=== PATIENT | male | born 1955 | race Caucasian/White ===

== ENCOUNTER 2023-05-15 11:30 | Observation (INO) | payer OTHER, SELFPAY ==
[2023-05-15] VITALS (8 sets, daily range): BP systolic 113–198; BP diastolic 62–88; PULSE 49–61; RESP 12–20; TEMP 36.4–37; O2SAT 97–100; BMI 24.1
--- NOTE | 2023-05-15 11:36 | DI.CT.S_ITS ---
PROCEDURE: CT STROKE INDICATIONS: code stroke TECHNIQUE: Noncontrast 4.5 mm thick angled axial sections acquired from the foramen magnum to the vertex, with coronal reformats. For radiation dose reduction, the following was used: automated exposure control, adjustment of mA and/or kV according to patient size. COMPARISON: None. FINDINGS: Image quality: Excellent. CSF spaces: Basal cisterns are patent. No extra-axial fluid collections. The ventricles are symmetric in size and shape. Brain: No intracranial bleeds or masses. There is cerebral volume loss for age, with resultant ventricular and sulcal prominence. There are periventricular and deep white matter chronic small vessel ischemic changes. There is intracranial internal carotid artery atherosclerosis. Skull and face: Calvarium and visualized facial bones appear intact, without suspicious lesions. Sinuses: Visualized sinuses and mastoids are clear. IMPRESSION: No acute intracranial hemorrhage is seen. No acute intracranial process is seen. If there is strong clinical suspicion for an acute stroke, please consider a brain MRI for further evaluation, as it is more sensitive (assuming that there is no contraindication to MRI). Note: Case discussed by telephone with Dr. Laurent at 10:58 a.m. [place] time on May 15, 2023. This study fulfills neurological imaging criteria for inclusion or exclusion of acute stroke therapies based on available published neurological guidelines. Dictated by: Adan Ochoa M.D. on 05/15/2023 at 10:57 Approved by: Adan Ochoa M.D. on 05/15/2023 at 10:59
--- NOTE | 2023-05-15 11:37 | DI.CT.S_ITS ---
PROCEDURE: CT ANGIO HEAD AND NECK INDICATIONS: code stroke TECHNIQUE: After the administration of intravenous contrast, 1 mm thick sections acquired from the aortic arch through the [place] of [place]. 3-dimensional ijfhvyp-xptcowaqe-rrswdcsjgc (MIP) and/or volume rendering reformats were acquired of the central intracranial vasculature and neck separately. For radiation dose reduction, the following was used: automated exposure control, adjustment of mA and/or kV according to patient size. COMPARISON: [facility], CT, CT STROKE, 05/15/2023, 11:38. FINDINGS: Image quality: There is streak artifact seen through the level of the shoulders. Limited by bolus timing, with venous contamination. BRAIN: CSF spaces: Ventricles are normal in size and shape. Basal cisterns are patent. No extra-axial fluid collections. Brain: No significant abnormality of the brain can be seen. Skull and face: Calvarium and facial bones appear intact, without suspicious lesions. Orbits appear normal. Sinuses: Sinuses and mastoids are clear. HEAD CT ANGIOGRAPHY: Anterior circulation: Intracranial internal carotid arteries are normal in size and flow. There is a diminutive right A1 segment, with a corresponding robust left A1 segment. This is considered to be a normal developmental variant of the [place] of [place], of typically no clinical consequence. The flow within the paired anterior cerebral arteries is asymmetric, more robust on the left. This is believed to be a congenital variant. The flow within the middle cerebral arteries is normal and symmetric. The anterior communicating artery is seen. No aneurysms are seen. Posterior circulation: Visualized portions of the vertebral arteries demonstrate normal caliber, and join to form a normal appearing basilar artery. Flow within the posterior cerebral arteries is normal and symmetric. No aneurysms are seen. NECK CT ANGIOGRAPHY: Carotid system: The great vessels demonstrate a conventional anatomy as they arise from the aortic arch. Atherosclerotic calcification is noted. The origins of the common carotid arteries appear patent. The common carotid arteries demonstrate normal caliber and courses. The bifurcation regions are both widely patent. The internal carotid arteries demonstrate normal calibers and courses. Posterior circulation: The origins of the vertebral arteries both appear widely patent. The more superior extracranial portions of both vertebral arteries also demonstrate normal courses and calibers. They join to form a normal appearing basilar artery. Soft tissues: Visualized neck soft tissues demonstrate no suspicious abnormalities. Bones: No suspicious bony lesions. Visualized cervical spine appears normally aligned. Moderate cervical spine degenerative change can be seen, which is worst inferiorly. IMPRESSION: Within the arteries of the neck, no hemodynamically significant stenosis can be seen. No significant intracranial arterial abnormality is seen. Additional findings: Uudzpo-ji-Iyqcsy developmental anomalies Moderate lower cervical spine degenerative change Any quantitative measurements of stenosis were performed using NASCET criteria. Dictated by: Adan Ochoa M.D. on 05/15/2023 at 11:08 Approved by: Adan Ochoa M.D. on 05/15/2023 at 11:13
[2023-05-15 11:49] LABS: Add Manual Diff / Slide Review NO; Basophils Absolute Auto 0 /uL (0-100); Basophils Percent Auto 0.3 % (0-2); Eosinophils Absolute Auto 200 /uL (0-450); Eosinophils Percent Auto 3.3 % (2-4); Hematocrit 37.9 % (41-53); Hemoglobin 13.2 g/dL (13.5-17.5); Lymphocytes Absolute Auto 1900 /uL (1100-4500); Lymphocytes Percent Auto 31.8 % (25-40); Mean Corpuscular HGB Conc 34.7 % (30-36); Mean Corpuscular Hemoglobin 29.5 PG (26-34); Monocytes Absolute Auto 500 /uL (0-900); Monocytes Percent Auto 8.7 % (3-14); Neutrophils Absolute Auto 3400 /uL (1500-7000); Neutrophils Percent Auto 55.9 % (50-75); Platelet Count 215 X10^3/uL (150-400); Red Blood Cell Count 4.46 X10^6/uL (4.5-5.9); Red Cell Distribution Width 16.5 % (11.6-14.8); White Blood Cell Count 6.1 X10^3/uL (4.5-11.0)
[2023-05-15 11:58] LABS: INR 1.2 (0.9-1.3); Prothrombin Time 13.3 SECONDS (10.1-12.7)
--- NOTE | 2023-05-15 11:59 | ED.NEUROSD ---
HPI - Neuro Symptoms/Deficit General Chief Complaint: Neuro Symptoms/Deficit Stated Complaint: possibly having a stroke Time Seen by Provider: 05/15/23 11:36 Source: patient and family Mode of arrival: Ambulatory Limitations: no limitations History of Present Illness HPI Narrative: Patient is a 68-year-old male. Arrived in the emergency department approximately 1 hour after the onset of symptoms. He was with his . He was at his normal state of health. They were driving. He stated that he had a fairly sudden onset of difficulty seeing. He describes it as feeling like that there was son in his eyes. About that time the patient's also states that he seemed to be somewhat confused. Was slurring his words. Had a difficult time explaining what was going on. They pulled over. She had to drive because of the way he was feeling. Patient states that at the time he was not having chest pain or shortness of breath or headache or abdominal pain or nausea or vomiting. They arrived here to the emergency department for evaluation of above symptoms. At the time of my evaluation he states that he has now started to develop a frontal headache. His vision changes that he had earlier have resolved. His thinks that he is still having some issues with speaking although she admits and he also admits that his speaking has greatly improved as well. He never had any tingling in his upper or lower extremities. He is not on blood thinners. On Anticoagulants: No Review of Systems Review of Systems ROS Unobtainable: All systems reviewed & are unremarkable except as noted in HPI and below Hematologic/Lymphatic On Anticoagulants: No Exam Initial Vital Signs Initial Vital Signs: Vital Signs Pulse Rate 54 L 05/15/23 11:35 Respiratory Rate 19 05/15/23 11:35 Blood Pressure 176/81 H 05/15/23 11:35 Pulse Oximetry 100 05/15/23 11:35 Const General: cooperative, comfortable and No ill appearing HENWV Head: normal to inspection and normocephalic Resp Effort & Inspection: normal respiratory effort Auscultation: clear to auscultation bilaterally Cardio Rate: regular rate Rhythm: regular rhythm GI Inspection: normal to inspection and non-distended Skin General: no rashes or lesions noted Neuro General: patient alert, patient awake, patient oriented x3 and moves all extremities Cranial Nerves: CN's II-XI intact bilaterally Cognition: normal cognition Speech: speech normal Sensory Exam: no sensory deficits noted Extrem General: normal to inspection, capillary refill normal and No edema Scores GCS Rivera coma scale eye opening: Spontaneous Rivera coma scale verbal response: Orientated Rivera coma scale motor response: Obey commands [place] coma scale total score: 15 NIH Stroke Scale Level of Conciousness: Alert, keenly responsive Ask month/age: Answers both questions correctly. Open/close eyes, close hand: Performs both tasks correctly Best gaze horizontal: Normal Visual willett: No visual loss Facial palsy: Normal symetrical movement Left arm drift: No drift for full 10 sec Right arm drift: No drift for full 10 sec Left leg drift: No drift for full 5 sec Right leg drift: No drift for full 5 sec Limb ataxia: Absent Sensory on face/arms/legs: Normal, no sensory loss Best language: No aphasia, normal Dysarthria: Normal Extinction or inattention: No abnormality Total NIH Stroke scale score: 0 Course Orders Ordered: ED Orders 05/15/23 11:36 CT Stroke Stat 05/15/23 11:37 CT angio head and neck Stat 05/15/23 11:38 EKG-12 Lead Stat 05/15/23 11:40 Complete Blood Count AUTO DIFF Stat Comprehensive Metabolic Panel Stat Ethanol (ETOH) Stat Lipase Stat Magnesium Stat PTT Partial Thromboplastin Jamin Stat Prothrombin Time INR Stat Troponin & CK Cardiac Panel Stat Aspirin (Aspirin Ec 81 Mg Tablet) 81 mg PO DAILY YASMIN Clopidogrel Bisulfate (Clopidogrel 75 Mg Tablet) 75 mg PO DAILY YASMIN Vital Signs Vital signs: Vital Signs - 8 hr 05/15/23 11:40 05/15/23 11:35 05/15/23 11:35 Temperature 98.6 F Pulse Rate 53 L 54 L Respiratory Rate 16 19 Blood Pressure 198/88 H 176/81 H Pulse Oximetry 99 100 Oxygen Delivery Method Room Air 05/15/23 12:00 05/15/23 12:00 05/15/23 12:30 Temperature Pulse Rate 55 L 50 L Respiratory Rate 17 12 Blood Pressure 172/71 H Pulse Oximetry 100 100 Oxygen Delivery Method 05/15/23 12:31 05/15/23 12:31 Temperature Pulse Rate 50 L Respiratory Rate 14 Blood Pressure 148/70 H Pulse Oximetry 100 Oxygen Delivery Method MDM - Neuro Symptoms/Deficit Lab Data Attestation: I reviewed the patient's lab results. 05/15/23 11:40 05/15/23 11:40 Labs: Lab Results 05/15/23 05/15/23 05/15/23 Range/Units 11:40 11:40 11:40 WBC 6.1 (4.5-11.0) X10^3/uL RBC 4.46 L (4.5-5.9) X10^6/uL Hgb 13.2 L (13.5-17.5) g/dL Hct 37.9 L (41-53) % MCV 85.0 (80-100) fL MCH 29.5 (26-34) PG MCHC 34.7 (30-36) % RDW 16.5 H (11.6-14.8) % Plt Count 215 (150-400) X10^3/uL Neut % (Auto) 55.9 (50-75) % Lymph % (Auto) 31.8 (25-40) % Simpson % (Auto) 8.7 (3-14) % Eos % (Auto) 3.3 (2-4) % Baso % (Auto) 0.3 (0-2) % Neut # (Auto) 3400 (5805-1475) /uL Lymph # (Auto) 1900 (4301-6110) /uL Simpson # (Auto) 500 (0-900) /uL Eos # (Auto) 200 (0-450) /uL Baso # (Auto) 0 (0-100) /uL PT 13.3 H (10.1-12.7) SECONDS INR 1.2 (0.9-1.3) APTT 31 (26-36) SECONDS Sodium 138 (137-145) mmol/L Potassium 4.1 (3.4-5.1) mmol/L Chloride 100 (98-107) mmol/L Carbon Dioxide 27 (22-32) mmol/L BUN 14 (9-20) mg/dL Creatinine 0.84 (0.66-1.25) mg/dL Estimated GFR > 60 (>60) mL/min BUN/Creatinine Ratio 16.7 (6-22) Glucose 95 (80-110) mg/dL Calcium 9.9 (8.4-10.2) mg/dL Magnesium 2.0 (1.6-2.3) mg/dL Total Bilirubin 0.9 (0.2-1.3) mg/dL AST 24 (17-59) IU/L ALT 22 (<50) IU/L Alkaline Phosphatase 37 L (38-126) U/L Total Creatine Kinase 85 (55-170) U/L Troponin I < 0.012 (0.01-0.034) ng/mL Total Protein 7.9 (6.3-8.2) g/dL Albumin 4.8 (3.5-5.0) g/dL Globulin 3.1 (1.7-4.1) g/dL Albumin/Globulin Ratio 1.5 (1.0-2.8) Lipase 158 (23-300) U/L Ethyl Alcohol < 10 ( - 10) mg/dL Point of Care Testing Glucose POC 92 Urine Dip Bedside Urine Glucose Negative Bedside Urine Bilirubin - Negative Bedside Urine Ketone +/- 5 Urine Specific [place] 1.000 Bedside Urine Occult Blood - Negative Bedside Urine pH 6.0 Bedside Urine Protein - Negative Bedside Urine Urobilinogen - Negative Bedside Urine Nitrite - Negative Bedside Urine Leukocytes - Negative Esterase Imaging Data CT scan - head: Radiologist's Impression: PROCEDURE:? CT STROKE ? INDICATIONS:? code stroke ? TECHNIQUE:? Noncontrast 4.5 mm thick angled axial sections acquired from the foramen magnum to the vertex, with coronal reformats.? For radiation dose reduction, the following was used:? automated exposure control, adjustment of mA and/or kV according to patient size.? ? COMPARISON:? None. ? FINDINGS:? Image quality:? Excellent.? ? CSF spaces:? Basal cisterns are patent.? No extra-axial fluid collections.? The ventricles are symmetric in size and shape.? ? Brain:? No intracranial bleeds or masses.? There is cerebral volume loss for age, with resultant ventricular and sulcal prominence.? There are periventricular and deep white matter chronic small vessel ischemic changes.? There is intracranial internal carotid artery atherosclerosis.? ? Skull and face:? Calvarium and visualized facial bones appear intact, without suspicious lesions.? ? Sinuses:? Visualized sinuses and mastoids are clear.? ? ? IMPRESSION:? No acute intracranial hemorrhage is seen. ? No acute intracranial process is seen. ? If there is strong clinical suspicion for an acute stroke, please consider a brain MRI for further evaluation, as it is more sensitive (assuming that there is no contraindication to MRI). ? ? ? Note: Case discussed by telephone with Dr. Laurent at 10:58 a.m. [place] time on May 15, 2023.? ? This study fulfills neurological imaging criteria for inclusion or exclusion of acute stroke therapies based on available published neurological guidelines.? CTA - brain/neck: Radiologist's Impression: PROCEDURE:? CT ANGIO HEAD AND NECK ? INDICATIONS:? code stroke ? TECHNIQUE:? After the administration of intravenous contrast, 1 mm thick sections acquired from the aortic arch through the [place] of [place].? 3-dimensional klumlny-znsbhqorp-qoroqdlazo (MIP) and/or volume rendering reformats were acquired of the central intracranial vasculature and neck separately. For radiation dose reduction, the following was used:? automated exposure control, adjustment of mA and/or kV according to patient size.? ? COMPARISON:? [facility], CT, CT STROKE, 05/15/2023, 11:38. ? FINDINGS:? Image quality:? There is streak artifact seen through the level of the shoulders. Limited by bolus timing, with venous contamination.? ? BRAIN:? CSF spaces:? Ventricles are normal in size and shape.? Basal cisterns are patent.? No extra-axial fluid collections.? ? Brain:? No significant abnormality of the brain can be seen. ? ? ? Skull and face:? Calvarium and facial bones appear intact, without suspicious lesions.? Orbits appear normal.? ? Sinuses:? Sinuses and mastoids are clear.? ? HEAD CT ANGIOGRAPHY:? Anterior circulation:? Intracranial internal carotid arteries are normal in size and flow.? There is a diminutive right A1 segment, with a corresponding robust left A1 segment.? This is considered to be a normal developmental variant of the [place], of typically no clinical consequence.? The flow within the paired anterior cerebral arteries is asymmetric, more robust on the left.? This is believed to be a congenital variant.? The flow within the middle cerebral arteries is normal and symmetric.? The anterior communicating artery is seen.? No aneurysms are seen.? ? Posterior circulation:? Visualized portions of the vertebral arteries demonstrate normal caliber, and join to form a normal appearing basilar artery.? Flow within the posterior cerebral arteries is normal and symmetric.? No aneurysms are seen.? ? NECK CT ANGIOGRAPHY:? Carotid system:? The great vessels demonstrate a conventional anatomy as they arise from the aortic arch. Atherosclerotic calcification is noted.? ? The origins of the common carotid arteries appear patent.? The common carotid arteries demonstrate normal caliber and courses.? The bifurcation regions are both widely patent.? The internal carotid arteries demonstrate normal calibers and courses.? ? Posterior circulation:? The origins of the vertebral arteries both appear widely patent.? The more superior extracranial portions of both vertebral arteries also demonstrate normal courses and calibers.? They join to form a normal appearing basilar artery.? ? Soft tissues:? Visualized neck soft tissues demonstrate no suspicious abnormalities.? ? Bones:? No suspicious bony lesions.? Visualized cervical spine appears normally aligned.? Moderate cervical spine degenerative change can be seen, which is worst inferiorly. ? ? IMPRESSION:? Within the arteries of the neck, no hemodynamically significant stenosis can be seen. ? No significant intracranial arterial abnormality is seen.? ECG Data Attestation: I personally reviewed and interpreted this ECG as follows: Interpretation: Sinus bradycardia Ventricular rate of 54 Normal axis Normal QRS Normal QTC No ST T wave changes MDM Narrative Medical decision making narrative: Upon arrival the patient states his symptoms have improved. His NIH score was 0. I did not appreciate any dysarthria or aphasia. His seemed to think that he was still not speaking completely normal. He has developed somewhat of a frontal headache. He states his blood pressure is normally in the 100-110 range systolic. It is higher than that today. He is on blood pressure medications. His head CT and CTA are unremarkable. Blood sugars unremarkable. Discussed the case with on-call stroke Neurology who agreed with no tPA. There was no large vessel occlusion on the CTA. The recommended admitting to the hospital with a diagnosis of TIA to obtain blood pressure control, echo and MRI. I did discuss the case with Dr. Caldwell hospitalist on-call who will admit for further evaluation treatment. Discussed the need for admission with the patient. He expressed understanding and agreement with plan. Discharge Plan Departure Patient Disposition: Admitted as Observation Clinical Impression: Brain TIA, Hypertension Admit Date/Time: 05/15/23 12:43 Admit Provider: Miriam Caldwell
[2023-05-15 12:01] LABS: PTT Partial Thromboplastin Tim 31 SECONDS (26-36)
[2023-05-15 12:02] LABS: Alanine Aminotransferase 22 IU/L (<50); Albumin 4.8 g/dL (3.5-5.0); Albumin Globulin Ratio 1.5 (1.0-2.8); Alkaline Phosphatase 37 U/L (38-126); Aspartate Aminotransferase 24 IU/L (17-59); BUN Creatinine Ratio 16.7 (6-22); Bilirubin Total 0.9 mg/dL (0.2-1.3); Blood Urea Nitrogen 14 mg/dL (9-20); Calcium 9.9 mg/dL (8.4-10.2); Carbon Dioxide 27 mmol/L (22-32); Chloride 100 mmol/L (98-107); Creatine Kinase 85 U/L (55-170); Estimated Glomerular Filt Rate > 60 mL/min (>60); Globulin 3.1 g/dL (1.7-4.1); Glucose 95 mg/dL (80-110); HEMOLYSIS < 15 (0-50); Lipase 158 U/L (23-300); Potassium 4.1 mmol/L (3.4-5.1); Sodium 138 mmol/L (137-145); Total Protein 7.9 g/dL (6.3-8.2)
--- NOTE | 2023-05-15 12:05 | PC.NURSE ---
Pt reporting that he feel better, continues to slight difficulty/slowness with word finding.
[2023-05-15 12:13] LABS: Troponin I < 0.012 ng/mL (0.01-0.034)
[2023-05-15 12:16] LABS: Ethanol (ETOH) < 10 mg/dL
--- NOTE | 2023-05-15 13:17 | DI.ECHO.S_ITS ---
[place] +---------+ Hospital +---------+ : : [address] : : : : [id number] : : : : Phone: [phone] Echocardiogram Report + + :Name: REED MARIO Study Date: 05/16/2023 Height: 72 in : :[facility] ReadingLocation: Weight: 178 lb : : Gender: Male BSA: 2.0 m2 : :: 1955 Age: 68 yrs BP: 121/60 mmHg: :Reason For Study: TIA : :Ordering Physician: CHELITA, : :BARON Performed By: Angela Lee : :Referring: BARON MERLOS : + + Interpretation Summary 1) Normal left ventricular thickness, size, wall motion, and systolic function (EF 60-65%). 2) Normal right ventricular size and function. 3) Aortic valve appears bicuspid (non-coronary cusp and right coronary cusps appear fused). 4) No significant valvular stenosis or regurgitation present. 5) Injection of contrast documented no interatrial shunt. 6) No prior Echo available for comparison. Procedure: A two-dimensional transthoracic echocardiogram with color flow and Doppler was performed. The study quality was technically adequate. There is no prior echocardiogram noted for this patient. The heart rate ranged between 42-56 bpm during the study. Left Ventricle: The left ventricle is normal in size and wall thickness. The ejection fraction is estimated to be 60-65%. Left ventricular systolic function appears normal without focal wall motion abnormalities. Diastolic parameters suggest a relaxation abnormality of the left ventricle, consistent with probable normal filling pressures. Right Ventricle: The right ventricle is borderline dilated. The right ventricular systolic function is normal. Atria: The left atrial size is normal. Right atrial size is normal. There is no Doppler evidence for an interatrial shunt. Injection of contrast documented no interatrial shunt. Mitral Valve: The mitral valve is normal in structure and function. There is trace mitral regurgitation. Aortic Valve: The aortic valve is bicuspid. The aortic valve is mildly calcified. The peak aortic velocity is 1.6 m/sec. The aortic valve mean gradient is 6 mmHg. There is trace aortic regurgitation. Tricuspid Valve: The tricuspid valve is normal in structure and function. There is trace tricuspid regurgitation. Pulmonary artery pressures cannot be estimated because of the lack of a measurable TR jet velocity. Pulmonic Valve: The pulmonic valve leaflets are thin and pliable; valve motion is normal. There is trace pulmonic regurgitation. Great Vessels: The aortic root is normal size. The dimensions of the ascending aorta are normal. The inferior vena cava was not visualized. Pericardium/ Pleura There is no pericardial effusion. There is no pleural effusion. MMode/2D Measurements & Calculations LVIDd: 5.5 cm LVOT diam: 2.3 cm LVIDs: 3.4 cm Ao root diam: 3.4 cm FS: 37.7 % asc Aorta Diam: 3.4 cm EPSS: 0.90 cm Ao Arch Diam (Prox Trans): 3.0 cm IVSd: 0.66 cm LVPWd: 0.96 cm LV crum. diameter/BSA (cm/m^2): 2.7 LV sys. diameter/BSA (cm/m^2): 1.7 LA A2 area: 14.2 cm2 RA long axis: 5.2 cm LA A4 area: 15.8 cm2 RA area: 17.5 cm2 LA length (vol): 5.0 cm RA vol: 50.6 ml LA vol: 38.0 ml RA : 25.0 ml/m2 LA vol index: 18.7 ml/m2 RVD1 (basal): 4.1 cm RVD2 (mid): 3.2 cm TAPSE: 2.3 cm Doppler Measurements & Calculations Ao V2 max: 163.3 cm/sec LVOT Max Garett: 99.6 cm/sec Ao V2 mean: 115.1 cm/sec LV V1 max P.0 mmHg Ao max P.5 mmHg LV V1 VTI: 22.7 cm Ao mean P.9 mmHg DAVID(I,D): 2.6 cm2 Ao V2 VTI: 36.1 cm DAVID(V,D): 2.6 cm2 sev ratio: 0.63 DAVID indexed to BSA (cm^2/m^2): 1.3 MV E max garett: 55.5 cm/sec PA pr(Accel): 25.9 mmHg MV A max garett: 83.4 cm/sec MV E/A: 0.66 Med Peak E' Garett: 6.9 cm/sec E/E' med: 8.0 Lat Peak E' Garett: 6.2 cm/sec E/E' lat: 8.9 E/e' average: 8.5 MV dec time: 0.25 sec SV(LVOT): 95.0 ml Reading Physician:12:26 PM
[2023-05-15 13:48] LABS: Hemoglobin A1C% w Est Avg Glu 5.8 % (4.0-6.0)
--- NOTE | 2023-05-15 14:31 | PT.IIE ---
Physical Therapy Inpatient Evaluation/Re-Eval M1 PT/OT-IP Prior Functional Status Start: 05/15/23 15:36 Freq: NEEDED Status: Active Protocol: Document 05/15/23 14:31 AB (Rec: 05/15/23 15:52 AB [id number]) Medical Review Prior Functional Status Medical History Reviewed Yes Communication able to make needs known Mobility and Gait pt stated that he is independent with all mobilities and ambulation without AD Social History Household Members significant other Living Arrangements House Number of Floors (Floors) One Floor Number of Stairs To Enter/Railing? 4 steps wide bilateral rails to enter and can only hold on to 1 rail at a time Home Environment Standard Height Toilet,Walk in Shower Home Equipment Grab Bars Near Toilet M2 PT-IP Current Condition Start: 05/15/23 15:36 Freq: NEEDED Status: Active Protocol: Document 05/15/23 14:31 AB (Rec: 05/15/23 15:52 AB [id number]) Physical Therapy Current Condition Current Condition Evaluation Date 05/15/23 Treatment Diagnosis TIA; difficulty in walking Onset Date 05/15/23 M3 PT-IP Subjective Start: 05/15/23 15:36 Freq: NEEDED Status: Active Protocol: Document 05/15/23 14:31 AB (Rec: 05/15/23 15:52 AB [email or web address]) Subjective Physical Therapy Visit Type Type Initial Evaluation Visit Start Time 14:31 Visit Stop Time 15:00 Total Visit Minutes 29 Number of [employer]IST Visits 0 Physical Therapy Visit Comments Patient Comments agreeable to do PT Therapy Pain Assessment Pain Present Pain Present Denied Pain M4 PT-IP Mobility and Gait Start: 05/15/23 15:36 Freq: NEEDED Status: Active Protocol: Document 05/15/23 14:31 AB (Rec: 05/15/23 15:52 AB [id number]) PT-Bed Mobility Assessment Supine to Sit Supine to Sit Independent Sit to Supine Sit to Supine Independent PT-Transfer Assessment Sit to and From Stand Sit to and from Stand Independent Equipment Transfer Assistive Device None,Bed Rail Orthotic/Prosthetic Devices or Brace: No Comments Mobility Comments pt supine in bed. agreeable to do PT. stated that he feels like he is back to baseline. stated that vision problems resolved and no c/o tingling, weakness or confusion. spouse in room. BP: 127/78. completed supine to sit independent. sit to stand independent and ambulated in room without AD SBA and agreed to ambulate in the hallway and completed ~ 250 ft without AD SBA for safety. slight antalgic gait with increase lateral leaning to the R and pt with forward head posture but without LOB. presents with steady gait. pt completed up/down step stool with L rail ascending SBA. pt requested to go back to bed . completed sit to supine independent. positioned in bed . call light and table placed within reach. informed pt regarding moving in room independently but ask for assistance if needed. informed pt and spouse that no further PT intervention needed and both agreed. informed nurse that pt does not need further PT. Gait Assessment Gait Gait Assistance Required: Standby Assistance Distance (Feet) 250 Able to Maintain Weight Bearing Status Yes During Gait Assistive Devices Assistive Device None,Gait Belt Orthotic/Prosthetic Devices or Brace: No Gait Deviations General Gait Pattern Antalgic Stair Climbing Assessment Evaluation Level of Assist On Stairs Standby Assistance Devices Stair Climbing Assistive Devices Left Railing Technique/Endurance Stair Climbing Direction Ascend and Descend Stair Climbing Technique Step to Step Number of Steps Climbed 1 Query Text: Stair Climbing Set # Repetitions (reps) 2 PT-Balance Assessment Sitting Balance and Reactions Static Sitting Balance Ability Normal Dynamic Sitting Balance Ability Normal Standing Balance and Reactions Static Standing Balance Ability Normal Dynamic Standing Balance Ability Good Device Used without AD M5 PT-IP Objective Assessments Start: 05/15/23 15:36 Freq: NEEDED Status: Active Protocol: Document 05/15/23 14:31 AB (Rec: 05/15/23 15:52 AB [id number]) Orientation Orientation/Cognition Level of Alertness Alert Orientation Name,Place,Situation Language Function Ability No Deficits Noted Safety Awareness Understands Safety Issues Memory Description No Deficits Noted Gross Range of Motion Lower Extremity ROM Assessment Within Functional Limits Strength Lower Extremity Strength Assessment Within Functional Limits Sensation Assessment Sensation Gross Sensation WNL Muscle Tone Muscle Tone WNL Yes M6 PT-IP Treatment Start: 05/15/23 15:36 Freq: NEEDED Status: Active Protocol: Document 05/15/23 14:31 AB (Rec: 05/15/23 15:52 AB [email or web address]) Physical Therapy Treatment Education Education Provided Safety M7 PT-IP Assessment and Plan Start: 05/15/23 15:36 Freq: NEEDED Status: Active Protocol: Document 05/15/23 14:31 AB (Rec: 05/15/23 15:52 AB [email or web address]) PT Summary Assessment and Plan Potential Rehabilitation Potential Good Status of Condition at Evaluation Stable Summary Impairments Pain,ROM,Strength,Balance, Coordination,Sensation,Tone, Cognition,Bed Mobility, Transfers,Gait,Activity Tolerance Assessment Summary pt is a 68 y/o male who c/o vision issues which feels like the sun was directly on his eyes per pt. per EMR also has slight confusion. Pt went to the ED and currently on observation for TIA; r/o CVA. pt brain CT is negative for stroke. pt is independent with bed mobility, SBA with transfers and ambulation without AD during evaluation for safety but can be independent in room and supervision for outside of room mobility for safety. Pt able to perform stair climbing SBA. pt will have his spouse to assist him if needed. PT eval completed and no further PT needs indicated. informed pt and spouse and both agreed. informed nurse as well. Frequency of Treatment Frequency Of Treatment Discharge Recommendations To Nursing Amount of Assist Needed Standby Assistance Discharge Recommendations PT Discharge Recommendations Home Transportation Needs at Discharge Private Vehicle
[2023-05-15] MEDS: CLOPIDOGREL 75 MG TABLET PO (16:01)
[2023-05-15] MEDS: ASPIRIN EC 81 MG TABLET PO (16:01)
--- NOTE | 2023-05-15 16:09 | PM.HP.1 ---
History of Present Illness History of Present Illness Chief complaint: possibly having a stroke Narrative: 68-year-old gentleman with known diabetes mellitus type 2, hyperlipidemia, remote history of tobacco use, who presented with acute onset of neurologic symptoms. He reports he was in his usual state of health when he had acute onset of changes to his peripheral vision bilaterally, left greater than right. He also noted onset of expressive aphasia with substitution of words/word salad. He and his were in [place] going to [employer] when the symptoms began. After the onset of his aphasia, his brought into the emergency department. On arrival to the emergency department, he noted the vision symptoms had resolved, but he had persistent word salad. That rapidly improved but his noted some mild persistent garbled speech. He also has had some ongoing difficulties with word finding. He reports the symptoms had essentially resolved within 2 hours of onset. Imaging was performed which revealed no acute findings on head CT, negative CT angiogram. Admission was recommended. He and his are presently renting a home in [place], [place]. They are here for the next 18 months while his receives breast cancer treatment. They usually live in [place]. He does not have a primary care provider here locally. He notes they both went on a diet approximately 2 months ago. He lost 25 lb. He states prior to that he was on metformin but his blood sugars had normalized and he has since been diet controlled. [facility] Family History (Updated 05/15/23 @ 16:14 by Miriam Caldwell MD) Brother Diabetes mellitus Atrial fibrillation Social History (Updated 05/15/23 @ 16:14 by Miriam Caldwell MD) marital status: household members: spouse and significant other lives independently: Yes caregiver/support person: No Smoking Status: Former smoker Tobacco: How many years used: 10 alcohol intake: never Meds Home Medications and Allergies Home Medications Medication Instructions Recorded Confirmed Type aspirin 81 mg tablet,delayed 81 mg PO QPM 05/15/23 05/15/23 History release losartan 25 mg tablet 25 mg PO DAILY 05/15/23 05/15/23 History pravastatin 40 mg tablet 40 mg PO DAILY 05/15/23 05/15/23 History Review of Systems Review of Systems Narrative: All other systems were reviewed negative Exam Vital Signs (past 8 hours): - 05/15/23 11:40 05/15/23 11:35 05/15/23 11:35 Temperature 98.6 F Pulse Rate 53 L 54 L Respiratory Rate 16 19 Blood Pressure 198/88 H 176/81 H Pulse Oximetry 99 100 Oxygen Delivery Method Room Air Oxygen Flow Rate 05/15/23 12:00 05/15/23 12:00 05/15/23 12:30 Temperature Pulse Rate 55 L 50 L Respiratory Rate 17 12 Blood Pressure 172/71 H Pulse Oximetry 100 100 Oxygen Delivery Method Oxygen Flow Rate 05/15/23 12:31 05/15/23 12:31 05/15/23 12:46 Temperature Pulse Rate 50 L Respiratory Rate 14 Blood Pressure 148/70 H Pulse Oximetry 100 Oxygen Delivery Method Room Air Oxygen Flow Rate 05/15/23 13:15 Temperature 97.5 F L Pulse Rate 49 L Respiratory Rate 18 Blood Pressure 144/64 H Pulse Oximetry 99 Oxygen Delivery Method Oxygen Flow Rate 0 Oxygen Delivery Method Room Air Oxygen Flow Rate 0 Narrative Exam Narrative: GEN: Very pleasant middle-aged male, Alert and oriented x3, no acute distress HEENT: Normocephalic, face symmetric, pupils equal round reactive to light, extraocular movements intact, sclerae anicteric, conjunctiva clear, nares patent, oropharynx reveals an intact soft and hard palate with moist mucous membranes, dentition is fair NECK: Supple, no lymphadenopathy, thyroid without enlargement or nodularity, carotids no bruits CHEST: Respiratory excursions symmetric, clear to auscultation bilaterally CV: Regular rate and rhythm, no murmurs, rubs, gallops, PMI nondisplaced ABD: Soft, nontender, nondistended, bowel sounds present in all 4 quadrants, no organomegaly or masses appreciated EXTR: Warm, well perfused, no clubbing/cyanosis/edema SKIN: Warm and dry, without rash NEURO: Alert and oriented x3, cranial nerves 2 through 12 are intact and symmetric bilaterally, motor strength 5/5 throughout, sensation intact throughout PSYCH: Mood and affect is within normal limits, judgment and insight are appropriate Objective Labs 05/15/23 11:40 05/15/23 11:40 Labs: Laboratory Results - last 24 hr 05/15/23 05/15/23 05/15/23 11:40 11:40 11:40 WBC 6.1 RBC 4.46 L Hgb 13.2 L Hct 37.9 L MCV 85.0 MCH 29.5 MCHC 34.7 RDW 16.5 H Plt Count 215 Neut % (Auto) 55.9 Lymph % (Auto) 31.8 [place] % (Auto) 8.7 Eos % (Auto) 3.3 Baso % (Auto) 0.3 Neut # (Auto) 3400 Lymph # (Auto) 1900 [place] # (Auto) 500 Eos # (Auto) 200 Baso # (Auto) 0 PT 13.3 H INR 1.2 APTT 31 Sodium 138 Potassium 4.1 Chloride 100 Carbon Dioxide 27 BUN 14 Creatinine 0.84 Estimated GFR > 60 BUN/Creatinine Ratio 16.7 Glucose 95 Hemoglobin A1c Calcium 9.9 Magnesium 2.0 Total Bilirubin 0.9 AST 24 ALT 22 Alkaline Phosphatase 37 L Total Creatine Kinase 85 Troponin I < 0.012 Total Protein 7.9 Albumin 4.8 Globulin 3.1 Albumin/Globulin Ratio 1.5 Lipase 158 Ethyl Alcohol < 10 05/15/23 11:40 WBC RBC Hgb Hct MCV MCH MCHC RDW Plt Count Neut % (Auto) Lymph % (Auto) [place] % (Auto) Eos % (Auto) Baso % (Auto) Neut # (Auto) Lymph # (Auto) [place] # (Auto) Eos # (Auto) Baso # (Auto) PT INR APTT Sodium Potassium Chloride Carbon Dioxide BUN Creatinine Estimated GFR BUN/Creatinine Ratio Glucose Hemoglobin A1c 5.8 Calcium Magnesium Total Bilirubin AST ALT Alkaline Phosphatase Total Creatine Kinase Troponin I Total Protein Albumin Globulin Albumin/Globulin Ratio Lipase Ethyl Alcohol Assessment & Plan Assessment & Plan narrative: 1. 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 Symptoms have for the most part resolved though he continues to have some word-finding difficulty. He is being admitted for further workup. Neuro stroke team was contacted with recommendation for dual antiplatelet therapy times 21 days. Echocardiogram has been ordered. Will obtain an MRI of the brain. Lipids will be performed in the morning. Hemoglobin A1c will also be obtained. EKG revealed sinus rhythm. Continue telemetry. Continue NIH monitoring. 2. Diabetes mellitus type 2, diet controlled Hemoglobin A1c was performed in the emergency department and was 5.8%, consistent with good control. Will place on a heart healthy diet. Patient is on losartan for renal protection, not hypertension. 3. Hyperlipidemia He is on pravastatin [address] on high-intensity statin for now. Lipid panel in the morning. 4. Bradycardia Patient had transient bradycardia in the emergency department with heart rate of 49. It has normalized now. Will monitor. 5. Code status Full Prophylaxis Low Dimitrios score Disposition Admit under observation status for further evaluation/monitoring. Patient will need assistance with locating a PCP. They would like to establish with someone down with [facility], as his is presently getting cancer care treatment for the next 18 months there. They are originally from [place] as noted above. However, they are staying in [place], [place] presently. Surrogate decision maker: Dana Batres, Spouse
--- NOTE | 2023-05-15 16:19 | DI.MRI.S_ITS ---
PROCEDURE: MR HEAD/BRAIN WO CON INDICATIONS: bitemporal hemianopsia, expressive aphasia, eval for cva TECHNIQUE: Non-contrast axial T1 spin echo, axial T2 fast spin echo, sagittal and axial FLAIR, coronal T2 fast spin echo, axial gradient echo, axial diffusion and ADC through the brain. COMPARISON: [facility], CT, CT ANGIO HEAD AND NECK, 05/15/2023, 11:38. FINDINGS: Image quality: Excellent. CSF spaces: Ventricles appear symmetric in size and shape. Basal cisterns are patent. No extra-axial fluid collections. Brain: No intracranial bleeds or mass effects. There is cerebral volume loss for age. There are periventricular and deep white matter chronic small vessel ischemic changes. Brainstem appears normal. Diffusion-weighted images show no acute ischemic insults. No chronic ischemic insults. Normal intravascular flow voids are present. Skull and face: Calvarial bone marrow is normal in signal. Orbits are normal. Sinuses: Sinuses and mastoids are clear. IMPRESSION: 1.No acute process. No recent infarct. Dictated by: Matt Ontiveros M.D. on 05/16/2023 at 8:35 Approved by: Matt Ontiveros M.D. on 05/16/2023 at 8:36
[2023-05-15] MEDS: ATORVASTATIN 20 MG TABLET 80 MG PO (20:57)
[2023-05-16 00:24] VITALS: BP 109/53; PULSE 51; RESP 16; TEMP 36.3; O2SAT 98
[2023-05-16 04:47] VITALS: BP 114/60; PULSE 55; RESP 16; TEMP 36.3; O2SAT 99
[2023-05-16 05:38] LABS: Add Manual Diff / Slide Review NO; Basophils Absolute Auto 0 /uL (0-100); Basophils Percent Auto 0.3 % (0-2); Eosinophils Absolute Auto 200 /uL (0-450); Eosinophils Percent Auto 3.8 % (2-4); Hematocrit 35.3 % (41-53); Hemoglobin 12.3 g/dL (13.5-17.5); Lymphocytes Absolute Auto 1800 /uL (1100-4500); Lymphocytes Percent Auto 39.9 % (25-40); Mean Corpuscular HGB Conc 34.8 % (30-36); Mean Corpuscular Hemoglobin 29.6 PG (26-34); Mean Corpuscular Volume 84.9 fL (80-100); Monocytes Absolute Auto 400 /uL (0-900); Monocytes Percent Auto 9.7 % (3-14); Neutrophils Absolute Auto 2100 /uL (1500-7000); Neutrophils Percent Auto 46.3 % (50-75); Platelet Count 203 X10^3/uL (150-400); Red Blood Cell Count 4.16 X10^6/uL (4.5-5.9); Red Cell Distribution Width 16.5 % (11.6-14.8); White Blood Cell Count 4.5 X10^3/uL (4.5-11.0)
[2023-05-16 05:53] LABS: BUN Creatinine Ratio 15.7 (6-22); Blood Urea Nitrogen 11 mg/dL (9-20); Calcium 9.1 mg/dL (8.4-10.2); Carbon Dioxide 25 mmol/L (22-32); Chloride 106 mmol/L (98-107); Estimated Glomerular Filt Rate > 60 mL/min (>60); Glucose 98 mg/dL (80-110); HEMOLYSIS < 15 (0-50); Potassium 3.8 mmol/L (3.4-5.1); Sodium 138 mmol/L (137-145)
[2023-05-16 05:54] LABS: Cholesterol 136 mg/dL (140-199); HDL Cholesterol 31 mg/dL (40-60); LDL Cholesterol Calculated 89 mg/dL (<100); Triglycerides 78 mg/dL (35-150)
[2023-05-16 08:21] VITALS: BP 121/60; PULSE 52; RESP 18; TEMP 37.3; O2SAT 98
--- NOTE | 2023-05-16 09:19 | PM.DS.1 ---
History of Present Illness History of Present Illness Chief complaint: possibly having a stroke Narrative: 68-year-old gentleman with known diabetes mellitus type 2, hyperlipidemia, remote history of tobacco use, who presented with acute onset of neurologic symptoms. He reports he was in his usual state of health when he had acute onset of changes to his peripheral vision bilaterally, left greater than right. He also noted onset of expressive aphasia with substitution of words/word salad. He and his were in [place] going to [employer] when the symptoms began. After the onset of his aphasia, his brought into the emergency department. On arrival to the emergency department, he noted the vision symptoms had resolved, but he had persistent word salad. That rapidly improved but his noted some mild persistent garbled speech. He also has had some ongoing difficulties with word finding. He reports the symptoms had essentially resolved within 2 hours of onset. Imaging was performed which revealed no acute findings on head CT, negative CT angiogram. Admission was recommended. He and his are presently renting a home in [place], [place]. They are here for the next 18 months while his receives breast cancer treatment. They usually live in [place]. He does not have a primary care provider here locally. He notes they both went on a diet approximately 2 months ago. He lost 25 lb. He states prior to that he was on metformin but his blood sugars had normalized and he has since been diet controlled. Discharge Providers Provider Date of admission: 05/15/23 12:43 Discharge Date: 05/16/23 Consults: 05/15/23 13:17 Consult to Discharge Planning Routine Comment: Needs referral to PCP Consult to Occupational Therapy Evaluate & Treat Comment: Physician Instructions: Evaluate and treat Consult to Physical Therapy Evaluate & Treat Comment: Physician Instructions: Evaluate and Treat Consult to Speech Therapy Evaluate & Treat Comment: Physician Instructions: Evaluate and treat Discharge provider: Miriam Caldwell MD Summary Hospital Course Discharge Diagnosis: 1. Transient ischemic attack resulting in acute bitemporal hemianopsia (heteronymous hemianopsia) and expressive aphasia, resolved 2. Diabetes mellitus type 2, diet controlled, chronic, stable 3. Hyperlipidemia, chronic, stable 4. Bradycardia, transient, resolved Hospital Course: Patient was admitted after acute onset of bitemporal hemianopsia and expressive aphasia. Symptoms gradually resolved over [address] head and CT angiogram were negative for acute ischemic events. EKG revealed sinus rhythm. NIH scores remained 0 for the course of his hospitalization. Due to the acuity of his symptoms in his comorbid conditions, brain MRI was performed which also revealed no acute ischemia. Hemoglobin A1c was 5.8% consistent with excellent diet control. Total cholesterol was 136, triglycerides 78, HDL 31, LDL 89. He will continue pravastatin. Encouraged the addition of fish oil. Physical therapy evaluated him and cleared him for safe discharge. Echocardiogram is pending at the time of this dictation, but discharge will be held until it has been read. Patient is encouraged to establish with a primary care provider. He will be living in [place], [place] for the next 18 months while his receives breast cancer treatment. They typically live in [place]. As his is getting care through [facility], he intends to contact them to establish a PCP while he remains in the region. Patient is discharged in stable condition. Status at Discharge Cognitive/behavioral status at discharge: at baseline, oriented Functional status at discharge: independent ambulation Overall status at discharge: patient is back to baseline Time Spent with Patient Time spent: Less than 30 minutes Exam Vital Signs (past 8 hours): - 05/16/23 04:47 05/16/23 08:21 Temperature 97.4 F L 99.1 F Pulse Rate 55 L 52 L Respiratory Rate 16 18 Blood Pressure 114/60 121/60 Pulse Oximetry 99 98 Oxygen Flow Rate 0 Oxygen Delivery Method Room Air Oxygen Flow Rate 0 Narrative Exam Narrative: GEN: Very pleasant middle-aged male, Alert and oriented x 3, NAD HEENT:NC, Face symmetric CHEST: Respiratory excursions symmetric, CTAB CV: RRR, no M/R/G ABD: Soft, NT/ND, BT present in all 4 quadrants, no organomegaly or masses EXTR: warm, well perfused, no C/C/E SKIN: warm and dry, no rash NEURO: Alert and oriented x 3, nonfocal Objective Labs 05/16/23 05:10 05/16/23 05:10 Labs: Laboratory Results - last 24 hr 05/15/23 05/15/23 05/15/23 11:40 11:40 11:40 WBC 6.1 RBC 4.46 L Hgb 13.2 L Hct 37.9 L MCV 85.0 MCH 29.5 MCHC 34.7 RDW 16.5 H Plt Count 215 Neut % (Auto) 55.9 Lymph % (Auto) 31.8 [place] % (Auto) 8.7 Eos % (Auto) 3.3 Baso % (Auto) 0.3 Neut # (Auto) 3400 Lymph # (Auto) 1900 [place] # (Auto) 500 Eos # (Auto) 200 Baso # (Auto) 0 PT 13.3 H INR 1.2 APTT 31 Sodium 138 Potassium 4.1 Chloride 100 Carbon Dioxide 27 BUN 14 Creatinine 0.84 Estimated GFR > 60 BUN/Creatinine Ratio 16.7 Glucose 95 Hemoglobin A1c Calcium 9.9 Magnesium 2.0 Total Bilirubin 0.9 AST 24 ALT 22 Alkaline Phosphatase 37 L Total Creatine Kinase 85 Troponin I < 0.012 Total Protein 7.9 Albumin 4.8 Globulin 3.1 Albumin/Globulin Ratio 1.5 Triglycerides Cholesterol LDL Cholesterol, Calc HDL Cholesterol Lipase 158 Ethyl Alcohol < 10 05/15/23 05/16/23 05/16/23 11:40 05:10 05:10 WBC 4.5 RBC 4.16 L Hgb 12.3 L Hct 35.3 L MCV 84.9 MCH 29.6 MCHC 34.8 RDW 16.5 H Plt Count 203 Neut % (Auto) 46.3 L Lymph % (Auto) 39.9 [place] % (Auto) 9.7 Eos % (Auto) 3.8 Baso % (Auto) 0.3 Neut # (Auto) 2100 Lymph # (Auto) 1800 [place] # (Auto) 400 Eos # (Auto) 200 Baso # (Auto) 0 PT INR APTT Sodium 138 Potassium 3.8 Chloride 106 Carbon Dioxide 25 BUN 11 Creatinine 0.70 Estimated GFR > 60 BUN/Creatinine Ratio 15.7 Glucose 98 Hemoglobin A1c 5.8 Calcium 9.1 Magnesium Total Bilirubin AST ALT Alkaline Phosphatase Total Creatine Kinase Troponin I Total Protein Albumin Globulin Albumin/Globulin Ratio Triglycerides Cholesterol LDL Cholesterol, Calc HDL Cholesterol Lipase Ethyl Alcohol 05/16/23 05:10 WBC RBC Hgb Hct MCV MCH MCHC RDW Plt Count Neut % (Auto) Lymph % (Auto) [place] % (Auto) Eos % (Auto) Baso % (Auto) Neut # (Auto) Lymph # (Auto) [place] # (Auto) Eos # (Auto) Baso # (Auto) PT INR APTT Sodium Potassium Chloride Carbon Dioxide BUN Creatinine Estimated GFR BUN/Creatinine Ratio Glucose Hemoglobin A1c Calcium Magnesium Total Bilirubin AST ALT Alkaline Phosphatase Total Creatine Kinase Troponin I Total Protein Albumin Globulin Albumin/Globulin Ratio Triglycerides 78 Cholesterol 136 L LDL Cholesterol, Calc 89 HDL Cholesterol 31 L Lipase Ethyl Alcohol PFSH Family History (Updated 05/15/23 @ 16:14 by Miriam Caldwell MD) Brother Diabetes mellitus Atrial fibrillation Social History (Updated 05/15/23 @ 16:14 by Miriam Caldwell MD) marital status: household members: spouse and significant other lives independently: Yes caregiver/support person: No Smoking Status: Former smoker Tobacco: How many years used: 10 alcohol intake: never Discharge Plan Discharge Plan Patient Disposition: Home Provider Discharge Comment: You were admitted with a Transient Ischemic Attack (TIA). You will be on Aspirin 81 mg daily and Plavix (clopidogrel) 75 mg daily for 3 weeks. Then Plavix only. Continue your pravastatin and losartan. Your Hgb A1C was 5.8%. You are fine to stay off of metformin. Please call tomorrow to establish care w/a PCP as we discussed. Return to the ED: Tingling/numbness/weakness/facial droop/recurrent vision changes/word finding difficulties/word substitutions Discharge orders & Medications Prescriptions: New clopidogrel 75 mg Tablet 75 mg PO DAILY Qty: 30 0RF Continued pravastatin 40 mg tablet 40 mg PO DAILY aspirin 81 mg Tablet,Delayed Release (Dr/Ec) 81 mg PO QPM losartan 25 mg tablet 25 mg PO DAILY Diet/Activity/Treatments Diet: Carb-consistent/Diabetic Activity: As tolerated Oxygen: N/A Visit Report/Discharge Packet Instructions: Transient Ischemic Attack, DI for Hemianopsia Stand Alone Forms: Patient Portal/API, Stroke Signs & Symptoms Discharge Data Attending Provider: Miriam Caldwell Admit Date/Time: 05/15/23 12:43
[2023-05-16] MEDS: CLOPIDOGREL 75 MG TABLET PO (09:31)
[2023-05-16] MEDS: ASPIRIN EC 81 MG TABLET PO (09:31)
--- NOTE | 2023-05-16 14:22 | PC.NURSE ---
Discharge Note Patient A&O, VSS, RA, no complaints of pain/discomfort. Discharge packet reviewed with patient, all questions/concerns addressed. PIV/TELE discontinued. Patient able to dress self and pack all belongings. Patient taken down via wheelchair to POV.
== END 2023-05-16 14:00 | disposition home or self-care (01) ==
LOC: ED 12:32 → AC 12:44
PROVIDERS: Admitting Provider Family Medicine; Emergency Provider Emergency Medicine; Referring Provider Emergency Medicine; Visit Provider Family Medicine
DX: G45.9 Transient cerebral ischemic attack, unspecified (principal); R29.700 NIHSS score 0; E11.9 Type 2 diabetes mellitus without complications; I48.91 Unspecified atrial fibrillation; R00.1 Bradycardia, unspecified; E78.5 Hyperlipidemia, unspecified
CPT/HCPCS: 36415; 70450; 70496; 70498; 70551; 80048; 80053; 80061; 80320; 81003; 82550; 82962; 83036; 83690; 83735; 84484; 85025; 85610; 85730; 93005; 93010; 93306; 97161; 99284; 99285; G0378; Q3014; Q9967